=== PATIENT | female | born 1945 | race Hispanic/Latino ===

== ENCOUNTER 2017-07-10 10:30 | Outpatient (CLI) | payer MEDICARE | END 2017-07-10 10:31 | disposition home or self-care (01) | LOC: BICRAD 10:30 | PROVIDERS: ATTEND Nurse Practitioner Family | DX: R05 Cough (principal) | CPT/HCPCS: 71046 ==

== ENCOUNTER 2017-10-12 17:18 | Emergency (ER) | payer MEDICARE ==
[2017-10-12 17:49] LABS: #Eosinphils 0.2 thou/uL (0.0-0.7); #Lymphocytes 1.6 thou/uL (1.20-3.40); #Monocytes 0.7 thou/uL (0.11-0.59); #Neutrophils 6.5 thou/uL (1.40-6.50); %Basophils 0.4 % (0.0-1.0); %Lymphocytes 17.8 % (21.0-51.0); %Monocytes 8.2 % (0.0-10.0); %Neutrophils 71.7 % (42.0-75.0); Hemoglobin 12.6 g/dL (12.0-16.0); Mean Corpuscular HGB CONC 34.7 g/dL (32.0-36.0); Mean Corpuscular Hemoglobin 32.9 pg (27.0-31.0); Mean Corpuscular Volume 94.9 fl (81.0-99.0); Mean Platelet Volume 7.3 fL (7.4-10.4); Platelet Count 254 thou/uL (130-400); RBC Distribution Width 10.9 % (11.5-14.5); Red Blood Cell (RBC) Count 3.84 mill/uL (4.20-5.40); White Blood Cell (WBC) Count 9.1 thou/uL (4.8-10.8)
[2017-10-12 18:11] LABS: ALT (SGPT) 18 U/L (8-55); AST (SGOT) 17 U/L (5-34); Albumin 4.1 g/dL (3.4-4.8); Alkaline Phosphatase 108 U/L (40-150); Anion Gap 12 mmol/L (10-20); BUN (Urea Nitrogen) 22 mg/dL (9.8-20.1); Bilirubin, Total 0.5 mg/dL (0.2-1.2); Calc. Creatinine Clearance 0 mL/min (70-130); Calcium 9.1 mg/dL (7.8-10.44); Carbon Dioxide 26 mmol/L (23-31); Chloride 108 mmol/L (98-107); Estimated GFR-MDRD 62; Glucose 190 mg/dL (83-110); Magnesium 1.7 mg/dL (1.6-2.6); Protein, Total 7.1 g/dL (6.0-8.3); Sodium 142 mmol/L (136-145)
[2017-10-12 18:15] LABS: CKMB 1.1 ng/mL (0-6.6); Troponin I 0.013 ng/mL (< 0.028)
[2017-10-12] MEDS ORDERED: Ondansetron ODT 4 MG TAB ONE (18:21)
--- NOTE | 2017-10-12 18:21 | RAD ---
PORTABLE AP CHEST X-RAY 10/12/17 HISTORY: Generalized bodyaches and sore throat that began last night. Cough. COMPARISON: 09/28/15. FINDINGS: Postsurgical changes related to CABG are again noted. The cardiac silhouette is magnified by projecti on. Lungs are clear. Vascular calcifications are seen in the thoracic aorta. radiopaque densities ove rlie the upper abdomen which is felt to be artifactual. No other interval change. IMPRESSION: No acute cardiopulmonary process. POS: ALEXIA
[2017-10-12 19:03] LABS: Bilirubin Negative (Negative); Blood, Urine Negative (Negative); Clarity CLEAR (Clear); Glucose, Urine (Dipstick) Negative (Negative); Leukocyte Small (Negative); Nitrite Negative (Negative); Protein, Urine (Dipstick) Negative (Neg-Trace); Specific Gravity, Urine 1.021 (1.002-1.036); Urobilinogen 0.2 mg/dL (0.2-1.0); pH, Urine 5.5 (5.0-9.0)
[2017-10-12] MEDS ORDERED: Ibuprofen 200 MG TAB ONE (19:03)
[2017-10-12 19:09] LABS: Bacteria/HPF None Seen HPF (None Seen); Hyaline Casts/LPF 0-3 HYALINE CAST LPF (0-3 Hyaline); Pathc Cast-AUWi Flag 0.14 (0-2.49); RBC/HPF 0-3 HPF (0-3); Squamous Epithelial 0-3 HPF (0-3); WBC/HPF 0-3 HPF (0-3)
--- NOTE | 2017-11-27 14:53 | EKG ---
Test Reason : Blood Pressure : / mmHG Vent. Rate : 054 BPM Atrial Rate : 054 BPM P-R Int : 214 ms QRS Dur : 086 ms QT Int : 452 ms P-R-T Axes : 062 001 044 degrees QTc Int : 428 ms Sinus bradycardia with 1st degree A-V block Otherwise normal ECG Confirmed by ELIEZER Massey, ELIOT ([id number]), video news editor MIRTA JACKSON ([id number]) on 11/27/2017 2:52:33 PM Referred By: Confirmed By:ELIOT MARTINS M.D.
== END 2017-10-12 19:40 | disposition home or self-care (01) ==
LOC: ERS 17:18
DX: J02.9 Acute pharyngitis, unspecified; F32.9 Major depressive disorder, single episode, unspecified; I25.2 Old myocardial infarction; I10 Essential (primary) hypertension; E78.5 Hyperlipidemia, unspecified; E11.9 Type 2 diabetes mellitus without complications; Z79.82 Long term (current) use of aspirin; Z79.899 Other long term (current) drug therapy
CPT/HCPCS: 71045; 80053; 81003; 81015; 82553; 83605; 83735; 83880; 84484; 85025; 87081; 87430; 87804; 93005; 96360; Q0162

== ENCOUNTER 2018-02-28 11:09 | Emergency (ER) | payer MEDICARE ==
[2018-02-28 11:54] LABS: #Basophils 0.1 thou/uL (0.0-0.2); #Eosinphils 0.1 thou/uL (0.0-0.7); #Lymphocytes 1.6 thou/uL (1.20-3.40); #Monocytes 0.4 thou/uL (0.11-0.59); #Neutrophils 5.1 thou/uL (1.40-6.50); %Basophils 1.9 % (0.0-1.0); %Eosinophils 1.7 % (0.0-10.0); %Lymphocytes 21.1 % (21.0-51.0); %Monocytes 5.9 % (0.0-10.0); %Neutrophils 69.4 % (42.0-75.0); Hemoglobin 12.4 g/dL (12.0-16.0); Mean Corpuscular HGB CONC 35.6 g/dL (32.0-36.0); Mean Corpuscular Hemoglobin 34.1 pg (27.0-31.0); Mean Corpuscular Volume 95.6 fL (78.0-98.0); Mean Platelet Volume 7.4 fL (7.4-10.4); Platelet Count 239 thou/uL (130-400); Red Blood Cell (RBC) Count 3.63 mill/uL (4.20-5.40); White Blood Cell (WBC) Count 7.3 thou/uL (4.8-10.8)
[2018-02-28 12:13] LABS: ALT (SGPT) 21 U/L (8-55); AST (SGOT) 19 U/L (5-34); Albumin 4.3 g/dL (3.4-4.8); Alkaline Phosphatase 115 U/L (40-150); Anion Gap 16 mmol/L (10-20); BUN (Urea Nitrogen) 27 mg/dL (9.8-20.1); Bilirubin, Total 0.5 mg/dL (0.2-1.2); Calc. Creatinine Clearance 0 mL/min (70-130); Calcium 9.3 mg/dL (7.8-10.44); Carbon Dioxide 25 mmol/L (23-31); Chloride 104 mmol/L (98-107); Estimated GFR-MDRD 46; Globulin 3.3 g/dL (2.4-3.5); Glucose 271 mg/dL (83-110); Potassium 4.3 mmol/L (3.5-5.1); Protein, Total 7.6 g/dL (6.0-8.3); Sodium 141 mmol/L (136-145)
[2018-02-28 13:11] LABS: Bilirubin Negative (Negative); Blood, Urine Negative (Negative); Clarity TURBID (Clear); Glucose, Urine (Dipstick) 250 mg/dL (Negative); Leukocyte Negative (Negative); Nitrite Negative (Negative); Protein, Urine (Dipstick) Negative (Neg-Trace); Specific Gravity, Urine 1.026 (1.002-1.036); Urobilinogen 0.2 mg/dL (0.2-1.0); pH, Urine 5.5 (5.0-9.0)
== END 2018-02-28 14:23 | disposition home or self-care (01) ==
LOC: ERS 11:09
DX: E11.65 Type 2 diabetes mellitus with hyperglycemia (principal); E78.5 Hyperlipidemia, unspecified; F32.9 Major depressive disorder, single episode, unspecified; I10 Essential (primary) hypertension; I25.2 Old myocardial infarction; I25.10 Atherosclerotic heart disease of native coronary artery without angina pectoris; Z79.82 Long term (current) use of aspirin; Z79.51 Long term (current) use of inhaled steroids; Z79.899 Other long term (current) drug therapy
CPT/HCPCS: 36415; 36416; 80053; 81003; 83690; 85025; 87086; 96360; A4353

== ENCOUNTER 2018-07-18 14:40 | Outpatient (CLI) | payer MEDICARE ==
--- NOTE | 2018-07-18 16:17 | BD ---
DEXA BONE DENSITOMETRY: (Dual energy X-ray Absorptiometry) 07/18/18 HISTORY: 72-year-old white female for age-related postmenopausal, osteoporosis screening examination. Ht. 61 inches. Wt. 170 lb. Age of menopause: 43 years. COMPARISON: None available. FINDINGS: The bone mineral density (BMD) is given in grams per square centimeter (g/cm2): RIGHT HIP: BMD T-Score Z-Score Femoral neck: 0.881 0.3 2.2 Total: 1.024 0.7 2.3 LEFT HIP: BMD T-Score Z-Score Femoral neck: 0.793 -0.5 1.5 Total: 1.079 1.1 2.8 IMPRESSION: Bone mineral density of the bilateral femoral necks are both in the normal range compared to young ad ult. Fracture risk is not increased. JN Sherlyn POS: TPC
== END 2018-07-18 14:41 | disposition home or self-care (01) ==
LOC: BICMAMMO 14:40
PROVIDERS: ATTEND Specialist
DX: Z12.31 Encounter for screening mammogram for malignant neoplasm of breast (principal); M81.0 Age-related osteoporosis without current pathological fracture; R92.1 Mammographic calcification found on diagnostic imaging of breast; Z80.3 Family history of malignant neoplasm of breast
CPT/HCPCS: 77063; 77067; 77080

== ENCOUNTER 2018-12-09 10:22 | Outpatient (CLI) | payer MEDICARE ==
--- NOTE | 2018-12-09 10:38 | RAD ---
EXAM: Chest PA and lateral: HISTORY: Bronchiectasis COMPARISON: 01/24/2014 FINDINGS: Interval placement of sternotomy wires. Heart: Normal cardiac silhouette Aorta: Atherosclerosis Pulmonary vessels: Normal Costophrenic angles: Costophrenic angles are clear. Lungs: No consolidation or masses. Pneumothorax: No pneumothorax Osseous structures: No osseous abnormalities IMPRESSION: No acute cardiopulmonary process. Atherosclerosis of the aorta.
== END 2018-12-09 10:23 | disposition home or self-care (01) ==
LOC: BICRAD 10:22
PROVIDERS: ATTEND Specialist
DX: J40 Bronchitis, not specified as acute or chronic (principal); I70.0 Atherosclerosis of aorta
CPT/HCPCS: 71046

== ENCOUNTER 2019-01-22 07:19 | Outpatient (CLI) | payer MEDICARE ==
--- NOTE | 2019-01-22 08:44 | CT ---
HRCT OF THE CHEST WITHOUT IV CONTRAST: HISTORY: Pulmonary fibrosis FINDINGS: There is mild interstitial thickening in the left upper lobe. No honeycombing in the periphery is see n. No bronchiectasis or bullous changes are identified. No pleural or pericardial effusions are seen. There are vascular calcifications without evidence of a neurysmal dilatation of the thoracic aorta. There are degenerative changes in the spine. IMPRESSION: Mild chronic changes.
== END 2019-01-22 07:20 | disposition home or self-care (01) ==
LOC: CT 07:19
PROVIDERS: ATTEND Internal Medicine Critical Care Medicine
DX: J84.10 Pulmonary fibrosis, unspecified (principal)
CPT/HCPCS: 71250; 94010; 94727; 94729

== ENCOUNTER 2020-01-13 12:28 | Emergency (ER) | payer MEDICARE, OTHER ==
[2020-01-14 14:32] LABS: SARS-CoV-2 MS2 Positive; SARS-CoV-2 N Gene Negative; SARS-CoV-2 S Gene Negative; SARS-CoV-2 orf1ab Negative
== END 2020-01-13 13:22 | disposition home or self-care (01) ==
LOC: ERS 12:28
DX: R05 Cough (principal); Z20.828 Contact with and (suspected) exposure to other viral communicable diseases; E11.9 Type 2 diabetes mellitus without complications; I25.10 Atherosclerotic heart disease of native coronary artery without angina pectoris; E78.5 Hyperlipidemia, unspecified; E78.00 Pure hypercholesterolemia, unspecified; I10 Essential (primary) hypertension; I25.2 Old myocardial infarction; F32.9 Major depressive disorder, single episode, unspecified; Z79.82 Long term (current) use of aspirin; Z79.899 Other long term (current) drug therapy
CPT/HCPCS: 99283; U0003; 87635

== ENCOUNTER 2020-01-19 18:41 | Inpatient (IN) | payer MEDICARE, OTHER ==
[2020-01-19 19:36] LABS: Hemoglobin 13.3 g/dL (12.0-16.0); Mean Corpuscular HGB CONC 35.6 g/dL (32.0-36.0); Mean Corpuscular Hemoglobin 33.3 pg (27.0-31.0); Mean Corpuscular Volume 93.7 fL (78.0-98.0); Mean Platelet Volume 7.6 fL (7.4-10.4); Platelet Count 240 thou/uL (130-400); RBC Distribution Width 10.9 % (11.5-14.5); Red Blood Cell (RBC) Count 3.98 mill/uL (4.20-5.40); White Blood Cell (WBC) Count 13.9 thou/uL (4.8-10.8)
[2020-01-19] MEDS ORDERED: Acetaminophen 325 MG TAB ONE (19:47)
[2020-01-19 19:50] LABS: Band 4 % (5-11); Lymphocytes 8 % (21-51); MDiff Complete? YES; Monocytes 4 % (0-10); Neutrophil 83 % (42-75); Platelet Morphology Comment Appears Adequate; RBC Morphology Normal; Reactive Lymphocytes 1 % (0-10)
[2020-01-19 19:57] LABS: ALT (SGPT) 20 U/L (8-55); AST (SGOT) 19 U/L (5-34); Albumin 4.3 g/dL (3.4-4.8); Alkaline Phosphatase 110 U/L (40-110); Anion Gap 14 mmol/L (10-20); BUN (Urea Nitrogen) 16 mg/dL (9.8-20.1); Bilirubin, Total 0.7 mg/dL (0.2-1.2); Calc. Creatinine Clearance 0 mL/min (70-130); Calcium 8.8 mg/dL (7.8-10.44); Carbon Dioxide 25 mmol/L (23-31); Chloride 101 mmol/L (98-107); Estimated GFR-MDRD 52; Globulin 3.3 g/dL (2.4-3.5); Glucose 112 mg/dL (83-110); Potassium 3.7 mmol/L (3.5-5.1); Protein, Total 7.6 g/dL (6.0-8.3); Sodium 136 mmol/L (136-145)
[2020-01-19 20:15] LABS: Bacteria/HPF 1+ HPF (None Seen); Bilirubin Negative (Negative); Blood, Urine Negative (Negative); Clarity Clear (Clear); Glucose, Urine (Dipstick) Normal (Negative); Ketone, Urine Negative (Negative); Leukocyte 250 Leu/uL (Negative); Nitrite Negative (Negative); Protein, Urine (Dipstick) 10 mg/dL (Neg-Trace); Specific Gravity, Urine 1.021 (1.002-1.036); Squamous Epithelial 0-3 HPF (0-3); Urobilinogen Normal mg/dL (Less than 2)
[2020-01-19] MEDS ORDERED: cefTRIAXone\\ROCEPHIN 2 GM VIAL ONE (20:27)
--- NOTE | 2020-01-19 20:44 | RAD ---
PORTABLE CHEST: 01/19/20 HISTORY: Fever. Lungs are clear. No infiltrate identified. Heart and mediastinum unremarkable. Vascular markings norm al. IMPRESSION: No acute process. POS: AGW
[2020-01-19 23:20] VITALS: BMI 29.1
[2020-01-20] MEDS: Acetaminophen 325 MG TAB PO PRN ×4 (00:28→20:52)
[2020-01-20] MEDS ORDERED: Dextrose 5% in Water 1,000 ML IV PRN (08:41)
[2020-01-20] MEDS ORDERED: Insulin Regular 300 UNITS/3 ML VIAL SC PRN (08:41)
[2020-01-20] MEDS ORDERED: Dextrose 50% Abboject 50 ML SYRINGE IVP PRN (08:41)
[2020-01-20] MEDS ORDERED: Zolpidem Tartrate 5 MG TAB PO PRN (08:42)
[2020-01-20] MEDS ORDERED: Ondansetron PF 4 MG/2 ML Vial IVP PRN (08:43)
[2020-01-20] MEDS ORDERED: Sodium Chloride 0.9% 1,000 ML IV SCH (08:45)
[2020-01-20] MEDS: Gabapentin 300 MG CAP PO SCH ×3 (09:22→20:55)
[2020-01-20] MEDS: valACYclovir 500 MG TAB PO SCH (09:22)
[2020-01-20] MEDS: Aspirin 81 mg Enteric Coated Tablet PO SCH (09:23)
[2020-01-20] MEDS: ALPRAZolam 0.25 MG TAB PO SCH ×3 (09:23→20:54)
[2020-01-20] MEDS: Carvedilol 6.25 MG TAB PO SCH ×3 (09:24→20:53)
[2020-01-20] MEDS: Lisinopril 2.5 MG TAB PO SCH ×2 (09:24→09:30)
--- NOTE | 2020-01-20 09:33 | HP ---
CHIEF COMPLAINT: Urosepsis. HISTORY OF PRESENT ILLNESS: The patient is a 74-year-old female who all the day of admission began to have fever, chills, weakness, and prostration. She was brought to the emergency room by her son. He had been exposed to COVID previously in his workplace. Both of them, however, had been tested as negative on January 12. She felt nauseated, was unable to eat all day. She is a diabetic. She had general muscle aches all over, but no actual vomiting or diarrhea. In the emergency room, she was noted to have an elevated white count with left shift and her urinalysis showed overt infection and due to her fever and chills, dizziness, and generalized debility, she was felt to be septic. COVID tests were repeated on an urgent basis and this did return negative. She is being hospitalized. She is also dry. PAST MEDICAL HISTORY: Significant for insulin-dependent diabetes with good compliance to treatment and medication. She also has a history of hypertension, diverticulosis, associated occasional diverticulitis, hyperlipidemia, hypertension, has a history of [place] x2 in 2013, GERD, generalized anxiety disorder, asthma, and chronic back pain. Occasional herpetic recurrence. PAST SURGICAL HISTORY: Includes bilateral knee replacements, cataract surgery, coronary artery bypass graft x4 in 2014. PSYCHIATRIC HISTORY: Significant for the aforementioned anxiety and depression, well controlled at this time. ALLERGIES: SHE HAS NO KNOWN DRUG ALLERGIES. SOCIAL HISTORY: She is x2 years. She has never smoked or drank. She has been a homemaker. MEDICATIONS ON ADMISSION: Include: 1. Valacyclovir for recurrent herpes. 2. Aspirin 81 mg daily. 3. Gabapentin 600 mg t.i.d. 4. Atorvastatin 40 mg at bedtime. 5. Carvedilol 6.25 mg b.i.d. 6. Singulair 10 mg daily. 7. Tramadol 50 mg q.6 p.r.n. pain. 8. Metformin 1000 mg daily. 9. Imdur 30 mg daily. 10. Ranitidine 150 mg b.i.d. 11. Terazosin 5 mg at bedtime. 12. Nitroglycerin sublingual tabs p.r.n. chest pain. 13. Alprazolam 1 mg t.i.d. 14. Symbicort 2 puffs b.i.d. REVIEW OF SYSTEMS: CONSTITUTIONAL: The patient is positive for fever, chills, dizziness, debility, general aches and pains and weakness. HEENT: Denies drainage or congestion in upper airways, the eyes, ears, nose, or throat. CHEST: Denies cough or shortness of breath. CARDIOVASCULAR: Denies palpitation or chest pain. GI: Admits to nausea, but no vomiting or diarrhea. : No blood in urine or stool. She has recently had urinary frequency and admits to not drinking enough fluid. MUSCULOSKELETAL: Chronic back pain. No new pains in the major muscle joints. LYMPHATICS: No new areas of edema or abnormal bruising or bleeding. NEUROLOGIC: She has had some dizziness, but denies headache or trouble with mentation. PSYCHIATRIC: Currently, her anxiety and depression are well controlled. No new symptoms. SKIN: No new areas of bruising or rashes. PHYSICAL EXAMINATION: VITAL SIGNS: At the time of admission, blood pressure 127/58, pulse 103, respirations 20, temperature 100.4 orally, O2 saturation 100% on room air. GENERAL: This is a well-developed, well-nourished, female, elderly, alert, oriented, cooperative. HEENT: Normocephalic, atraumatic. Pupils 2 to 3 mm, reactive equally, reactive to light. Extraocular muscles intact. TMs, nares are clear. Pharynx is somewhat dry. NECK: Supple. No adenopathy. CHEST: Good breath sounds bilaterally. HEART: Regular rate and rhythm without murmur. BREASTS: Deferred. ABDOMEN: Soft without hepatosplenomegaly. Somewhat tender suprapubically. No guarding or rebound. EXTREMITIES: Without clubbing, cyanosis, or edema. Normal range of motion present. SKIN: Without acute rashes or lesions with poor turgor. NEUROLOGIC: Cranial nerves are intact. Gait and cerebral function are untested at this time. Sensory exam is grossly intact. Mental status is at baseline. LABORATORY DATA: On admission EKG showed heart rate of 82, normal sinus rhythm, no acute changes noted. Nonspecific T-waves (old). Chest x-ray shows no acute findings. The lab on admission showed WBCs at 13.9, hemoglobin 13.3, hematocrit 37.3 with platelets of 240. The neutrophils 83, bands 4, lymphocytes 8. COVID status is nonreactive. Urine shows 10 to 20 wbc's with 250 of leukocyte esterase. Sodium 136, potassium 3.7, chloride 101, CO2 of 25, BUN 16, creatinine 0.1 with GFR 52, glucose 112 (the patient does not eat all day), lactic acid 1.5, calcium 8.8. Liver functions unremarkable. ASSESSMENT: 1. Urosepsis. 2. Dehydration. 3. Insulin-dependent diabetes. PLAN: Plan will be fluid replacement. Sliding scale insulin. Continue IV Rocephin until cultures return. More specific treatment that may put her in a category for oral medication and discharge. We will serially re-evaluate her and provide antipyretics and antiemetics as needed. Job ID: [id number]
--- NOTE | 2020-01-20 15:51 | PQF ---
CLINICAL DOCUMENTATION CLARIFICATION FORM: Patient Name: CARINA SMART Date of : 1945 Account: [id number] Admit Date: 01/19/2020 Facility: [facility] [place] Dear Dr. Jose Eduardo SANTIAGO Date / Time: 01/20/2020 [id number] Please exercise your independent, professional judgment in responding to the clarification form. Clinical indicators are provided on the bottom of this form for your review. Please check appropriate box(es): [ X ] Sepsis due to: UTI [ ] Sepsis not due to : UTI [ ] Localized infection without sepsis [ ] Other diagnosis [ ] Unable to determine In addition, please specify: Present on Admission (POA): [ X ] Yes [ ] No [ ] Unable to determine For continuity of documentation, please document condition throughout progress notes and discharge summary. Thank You. To be completed by CDI/Coding staff for physician review: CLINICAL INDICATORS - SIGNS / SYMPTOMS / LABS / RESULTS AND LOCATION IN MR 01/18 PULSE 103, TEMP 102.5 01/18 WBC 13.9, BANDS 4 01/18 ED REPORT: ED PHYSICIAN FINAL DX: SEPSIS, UTI, COVID R/O 01/19 H&P (PAMELA) THE PATIENT IS 74 FEMALE WHO ALL DAY OF ADMISSION BEGAN TO HAVE FEVER, CHILLS, WEAKNESS. ASSESSMENT: UROSEPSIS, DEHYDRATION RISK FACTORS / RESULTS AND LOCATION IN MR DX UROSEPSIS, UTI (SANTIAGO/H&P) 01/18 TREATMENTS / RESULTS AND LOCATION IN MR ROCEPHIN IV ( ED/ 01/18) IV FLUIDS ( 01/19) THANK YOU! [facility]ING [facility] Signature: BING MEZA RN Phone #: [phone] Date: 01/20/2020 2759 This is a permanent part of the Medical Record [facility]
[2020-01-20] MEDS: metFORMIN 500 MG TAB PO SCH (17:03)
[2020-01-20] MEDS: Mometasone 200 MCG/Formoterol 5 MCG 120 PUFF INHALER INH SCH (18:43)
[2020-01-20] MEDS: Atorvastatin Calcium 40 MG TAB PO SCH (20:54)
[2020-01-20] MEDS: cefTRIAXone\\ROCEPHIN 2 GM in Sodium Chloride 0.9% 100 ML IVPB SCH (20:54)
[2020-01-20] MEDS: Insulin Glargine 5 UNITS in Pre-Filled Syringe 1 EACH SC SCH (20:55)
[2020-01-20] MEDS ORDERED: Montelukast Sodium 10 mg Tablet PO SCH (21:00)
[2020-01-21 06:42] LABS: #Lymphocytes 1.5 thou/uL (1.20-3.40); #Monocytes 0.5 thou/uL (0.11-0.59); #Neutrophils 5.5 thou/uL (1.40-6.50); %Basophils 0.4 % (0.0-1.0); %Eosinophils 0.1 % (0.0-10.0); %Monocytes 6.4 % (0.0-10.0); %Neutrophils 73.1 % (42.0-75.0); Hemoglobin 11.7 g/dL (12.0-16.0); Mean Corpuscular HGB CONC 34.5 g/dL (32.0-36.0); Mean Corpuscular Hemoglobin 33.2 pg (27.0-31.0); Mean Platelet Volume 8.3 fL (7.4-10.4); Platelet Count 175 thou/uL (130-400); Red Blood Cell (RBC) Count 3.52 mill/uL (4.20-5.40); White Blood Cell (WBC) Count 7.5 thou/uL (4.8-10.8)
[2020-01-21] MEDS: Mometasone 200 MCG/Formoterol 5 MCG 120 PUFF INHALER INH SCH (07:04)
[2020-01-21 07:05] LABS: Anion Gap 11 mmol/L (10-20); BUN (Urea Nitrogen) 12 mg/dL (9.8-20.1); Calc. Creatinine Clearance 67 mL/min (70-130); Calcium 7.7 mg/dL (7.8-10.44); Carbon Dioxide 23 mmol/L (23-31); Chloride 106 mmol/L (98-107); Cholesterol 128 mg/dl (< 200 Desired); Estimated GFR-MDRD 68; Glucose 89 mg/dL (83-110); HDL Cholesterol 42 mg/dL (>60 Neg Risk); LDL Cholesterol, Calculated 62 mg/dL; Potassium 3.5 mmol/L (3.5-5.1); Sodium 136 mmol/L (136-145); Triglycerides 121 mg/dL (Less than 150)
[2020-01-21] MEDS: Calcium Carbonate 500 MG ChewTAB PO SCH ×2 (08:33→23:00)
[2020-01-21] MEDS: valACYclovir 500 MG TAB PO SCH (08:34)
[2020-01-21] MEDS: Aspirin 81 mg Enteric Coated Tablet PO SCH (08:34)
[2020-01-21] MEDS: Lisinopril 2.5 MG TAB PO SCH (08:34)
[2020-01-21] MEDS: Carvedilol 6.25 MG TAB PO SCH ×2 (08:34→22:59)
[2020-01-21] MEDS: ALPRAZolam 0.25 MG TAB PO SCH ×3 (08:53→22:59)
[2020-01-21] MEDS: metFORMIN 500 MG TAB PO SCH (08:54)
[2020-01-21] MEDS: Atorvastatin Calcium 40 MG TAB PO SCH (22:59)
[2020-01-21] MEDS: cefTRIAXone\\ROCEPHIN 2 GM in Sodium Chloride 0.9% 100 ML IVPB SCH (23:00)
[2020-01-21] MEDS: Insulin Glargine 5 UNITS in Pre-Filled Syringe 1 EACH SC SCH (23:01)
[2020-01-22 06:58] LABS: #Eosinphils 0.2 thou/uL (0.0-0.7); #Monocytes 0.6 thou/uL (0.11-0.59); #Neutrophils 3.2 thou/uL (1.40-6.50); %Basophils 0.1 % (0.0-1.0); %Eosinophils 2.7 % (0.0-10.0); %Lymphocytes 33.7 % (21.0-51.0); %Monocytes 10.5 % (0.0-10.0); Hemoglobin 10.9 g/dL (12.0-16.0); Mean Corpuscular HGB CONC 34.4 g/dL (32.0-36.0); Mean Corpuscular Hemoglobin 32.2 pg (27.0-31.0); Mean Corpuscular Volume 93.5 fL (78.0-98.0); Mean Platelet Volume 8.3 fL (7.4-10.4); Platelet Count 191 thou/uL (130-400); RBC Distribution Width 10.9 % (11.5-14.5)
[2020-01-22 07:20] LABS: Anion Gap 13 mmol/L (10-20); BUN (Urea Nitrogen) 9 mg/dL (9.8-20.1); Calc. Creatinine Clearance 72 mL/min (70-130); Calcium 8.1 mg/dL (7.8-10.44); Carbon Dioxide 22 mmol/L (23-31); Chloride 108 mmol/L (98-107); Estimated GFR-MDRD 74; Glucose 94 mg/dL (83-110); Potassium 3.4 mmol/L (3.5-5.1); Sodium 140 mmol/L (136-145)
[2020-01-22 07:35] VITALS: TEMP 98.8
[2020-01-22] MEDS: Carvedilol 6.25 MG TAB PO SCH (09:54)
[2020-01-22] MEDS: Aspirin 81 mg Enteric Coated Tablet PO SCH (09:54)
[2020-01-22] MEDS: Calcium Carbonate 500 MG ChewTAB PO SCH (09:55)
[2020-01-22] MEDS: Lisinopril 2.5 MG TAB PO SCH (09:55)
[2020-01-22] MEDS: valACYclovir 500 MG TAB PO SCH (09:55)
[2020-01-22] MEDS: ALPRAZolam 0.25 MG TAB PO SCH (10:16)
[2020-01-22 13:57] VITALS: BP 125/82
--- NOTE | 2020-01-25 05:35 | PQF ---
CLINICAL DOCUMENTATION CLARIFICATION FORM: Dear : Wilson Rashid Date / Time: 01/25/2020 05:34 Please exercise your independent, professional judgment in responding to the clarification form. Clinical indicators are provided on the bottom of this form for your review Please check appropriate box(s): [ x ] Septic Shock [ ] Shock Unspecified [ ] Other diagnosis [ ] Unable to determine In addition, please specify: Present on Admission (POA): [ x ] Yes [ ] No [ ] Unable to determine Physician Signature: Date/Time: For continuity of documentation, please document condition throughout progress notes and discharge summary. Thank You. To be completed by CDI/Coding staff for physician review: Present Clinical Indicators - Signs / Symptoms / Labs Results and Location in Medical Record [x] BP: 01/1860=938/58 01/19=96/53 01/20=92/56 Vital Signs 01/18 [x] complains of fever,chills and feeling unwell ED Notes 01/18 [x] dizziness HP 01/18 Present Risk Factors Results and Location in Medical Record [x] Sepsis CDI Query [x] 74 years old female ED Notes 01/18 [x] DM ED Notes 01/18 [x] UTI CDI Query Present Treatments Results and Location in Medical Record [x] Rocephin 2gm IV SEP 11 [x] IVF SEP 11 [x] Vital Signs monitoring Collected 01/18 CDS/Product Technician Signature:Jose Hernandez Phone #: [phone] Date/Time: 01/25/2020 05:34 This is a permanent part of the Medical Record [facility]
== END 2020-01-22 11:47 | disposition home or self-care (01) | DRG 871 ==
LOC: ERS 18:41 → T4-A 21:20
PROVIDERS: ADMIT Specialist; ATTEND Specialist
DX: A41.9 Sepsis, unspecified organism (principal); R65.21 Severe sepsis with septic shock; N39.0 Urinary tract infection, site not specified; I25.10 Atherosclerotic heart disease of native coronary artery without angina pectoris; E11.9 Type 2 diabetes mellitus without complications; E78.5 Hyperlipidemia, unspecified; E78.00 Pure hypercholesterolemia, unspecified; I10 Essential (primary) hypertension; Z96.653 Presence of artificial knee joint, bilateral; F32.9 Major depressive disorder, single episode, unspecified; Z20.828 Contact with and (suspected) exposure to other viral communicable diseases; K21.9 Gastro-esophageal reflux disease without esophagitis; F41.1 Generalized anxiety disorder; J45.909 Unspecified asthma, uncomplicated; G89.29 Other chronic pain; E86.0 Dehydration; Z79.84 Long term (current) use of oral hypoglycemic drugs; Z79.82 Long term (current) use of aspirin; Z79.51 Long term (current) use of inhaled steroids; Z79.899 Other long term (current) drug therapy; I25.2 Old myocardial infarction; Z98.42 Cataract extraction status, left eye; Z98.41 Cataract extraction status, right eye; Z95.1 Presence of aortocoronary bypass graft; Z95.5 Presence of coronary angioplasty implant and graft; Z90.49 Acquired absence of other specified parts of digestive tract
CPT/HCPCS: 36415; 36416; 71045; 80048; 80053; 80061; 81003; 81015; 83605; 84443; 85025; 87040; 87086; 93005; 96361; 96365; J0696; J1815; J3490; U0002

== ENCOUNTER 2020-06-08 10:20 | Outpatient (CLI) | payer MEDICARE ==
--- NOTE | 2020-06-08 11:04 | RAD ---
2 VIEW CHEST: Date: 06/08/2020 INDICATION: Pneumonia. COMPARISON: 02/26/2020. FINDINGS: Lungs appear clear. No infiltrate identified. Heart and mediastinum unremarkable. Vascular markings a re normal. Postop sternotomy changes are again noted. Osseous structures unremarkable. IMPRESSION: No acute process. POS: AGW
== END 2020-06-08 10:21 | disposition home or self-care (01) ==
LOC: BICRAD 10:20
PROVIDERS: ATTEND Specialist
DX: J18.9 Pneumonia, unspecified organism (principal)
CPT/HCPCS: 71046

== ENCOUNTER 2020-10-21 08:14 | Emergency (ER) | payer OTHER, MEDICARE | END 2020-10-21 10:38 | disposition home or self-care (01) | LOC: ERS 08:14 | DX: M25.551 Pain in right hip (principal); M79.651 Pain in right thigh; E11.9 Type 2 diabetes mellitus without complications; E78.5 Hyperlipidemia, unspecified; I10 Essential (primary) hypertension; Z79.899 Other long term (current) drug therapy; W01.0XXA Fall on same level from slipping, tripping and stumbling without subsequent striking against object, initial encounter ==

== ENCOUNTER 2022-01-29 21:03 | Inpatient (IN) | payer MEDICARE ==
[2022-01-29 22:53] LABS: #Eosinphils 0.1 thou/uL (0.0-0.7); #Lymphocytes 3.1 thou/uL (1.20-3.40); #Monocytes 0.8 thou/uL (0.11-0.59); #Neutrophils 6.2 thou/uL (1.40-6.50); %Basophils 0.4 % (0.0-1.0); %Eosinophils 0.7 % (0.0-10.0); %Lymphocytes 30.4 % (21.0-51.0); %Monocytes 7.8 % (0.0-10.0); %Neutrophils 60.7 % (42.0-75.0); Hemoglobin 12.8 g/dL (12.0-16.0); Mean Corpuscular HGB CONC 33.6 g/dL (32.0-36.0); Mean Corpuscular Hemoglobin 33.3 pg (27.0-31.0); Mean Corpuscular Volume 99.2 fL (78.0-98.0); Mean Platelet Volume 7.5 fL (7.4-10.4); Platelet Count 276 thou/uL (130-400); RBC Distribution Width 11.2 % (11.5-14.5); Red Blood Cell (RBC) Count 3.85 mill/uL (4.20-5.40); White Blood Cell (WBC) Count 10.2 thou/uL (4.8-10.8)
[2022-01-29 23:15] LABS: ALT (SGPT) 20 U/L (8-55); AST (SGOT) 20 U/L (5-34); Albumin 4.6 g/dL (3.4-4.8); Alkaline Phosphatase 96 U/L (40-110); Anion Gap 15 mmol/L (10-20); BUN (Urea Nitrogen) 25 mg/dL (9.8-20.1); Bilirubin, Total 0.8 mg/dL (0.2-1.2); Calc. Creatinine Clearance 0 mL/min (70-130); Calcium 9.6 mg/dL (7.8-10.44); Carbon Dioxide 28 mmol/L (23-31); Chloride 103 mmol/L (98-107); Estimated GFR 61; Globulin 3.1 g/dL (2.4-3.5); Glucose 109 mg/dL (83-110); Potassium 4.5 mmol/L (3.5-5.1); Protein, Total 7.7 g/dL (5.8-8.1); Sodium 141 mmol/L (136-145)
[2022-01-30] MEDS ORDERED: Aspirin Chewable 81 MG TAB ONE (01:07)
[2022-01-30 02:00] LABS: Troponin I 0.017 ng/mL (< 0.028)
[2022-01-30 05:43] VITALS: BMI 30.7
[2022-01-30 06:01] LABS: Troponin I 0.016 ng/mL (< 0.028)
[2022-01-30 07:15] LABS: #Eosinphils 0.1 thou/uL (0.0-0.7); #Lymphocytes 2.6 thou/uL (1.20-3.40); #Monocytes 0.7 thou/uL (0.11-0.59); #Neutrophils 3.9 thou/uL (1.40-6.50); %Basophils 0.1 % (0.0-1.0); %Eosinophils 1.4 % (0.0-10.0); %Monocytes 9.1 % (0.0-10.0); %Neutrophils 53.5 % (42.0-75.0); Hemoglobin 12.4 g/dL (12.0-16.0); Mean Corpuscular HGB CONC 34.1 g/dL (32.0-36.0); Mean Corpuscular Hemoglobin 33.4 pg (27.0-31.0); Mean Corpuscular Volume 97.9 fL (78.0-98.0); Mean Platelet Volume 7.7 fL (7.4-10.4); Platelet Count 258 thou/uL (130-400); RBC Distribution Width 11.2 % (11.5-14.5); Red Blood Cell (RBC) Count 3.71 mill/uL (4.20-5.40); White Blood Cell (WBC) Count 7.2 thou/uL (4.8-10.8)
[2022-01-30 07:23] LABS: Hemoglobin A1c 5.9 % (4.0-6.0)
[2022-01-30 07:34] LABS: Anion Gap 13 mmol/L (10-20); BUN (Urea Nitrogen) 22 mg/dL (9.8-20.1); Calc. Creatinine Clearance 67 mL/min (70-130); Calcium 9.2 mg/dL (7.8-10.44); Carbon Dioxide 27 mmol/L (23-31); Chloride 106 mmol/L (98-107); Estimated GFR 73; Glucose 94 mg/dL (83-110); Potassium 4.4 mmol/L (3.5-5.1); Sodium 142 mmol/L (136-145)
[2022-01-30] MEDS ORDERED: Nitroglycerin 0.4 MG TAB (25 Tab Bottle) SL PRN ×2 (08:23→14:31)
[2022-01-30] MEDS ORDERED: Insulin Regular 300 UNITS/3 ML VIAL SC PRN (08:30)
[2022-01-30] MEDS ORDERED: Sodium Chloride 0.45% 1,000 ML IV SCH (08:30)
[2022-01-30] MEDS ORDERED: Dextrose 50% Abboject 50 ML SYRINGE IVP PRN (08:30)
[2022-01-30] MEDS ORDERED: Dextrose 5% in Water 1,000 ML IV PRN (08:30)
[2022-01-30 08:53] LABS: Bacteria/HPF None Seen HPF (None Seen); Bilirubin Negative (Negative); Blood, Urine Negative (Negative); Clarity Clear (Clear); Glucose, Urine (Dipstick) Normal (Negative); Ketone, Urine Negative (Negative); Leukocyte 250 Leu/uL (Negative); Nitrite Negative (Negative); Protein, Urine (Dipstick) Negative (Neg-Trace); RBC/HPF 0-3 HPF (0-3); Specific Gravity, Urine 1.013 (1.002-1.036); Squamous Epithelial 0-3 HPF (0-3); Urobilinogen Normal mg/dL (Less than 2); WBC/HPF 0-3 HPF (0-3)
[2022-01-30] MEDS ORDERED: Communication Order-Pharmacy FS SCH (09:45)
[2022-01-30] MEDS: Carvedilol 6.25 MG TAB PO SCH ×2 (10:07→20:52)
[2022-01-30] MEDS: Aspirin Chewable 81 MG TAB PO SCH (10:08)
[2022-01-30] MEDS: Lisinopril 10 MG TAB PO SCH (10:08)
[2022-01-30] MEDS ORDERED: Verapamil 5 MG/2 ML VIAL ONE (10:58)
[2022-01-30] MEDS ORDERED: Nitroglycerin 100MG/250ML BOT 0 ML ONE (10:58)
[2022-01-30] MEDS ORDERED: Adenosine 6 MG/2 ML VIAL ONE (10:58)
[2022-01-30] MEDS ORDERED: Lidocaine 1% (PF) 30 ML VIAL ONE (10:58)
[2022-01-30] MEDS ORDERED: Fentanyl 100 MCG/2 ML VIAL ONE (12:17)
[2022-01-30] MEDS ORDERED: Midazolam HCl 2 mg/2 ml Vial ONE (12:17)
[2022-01-30] MEDS ORDERED: Iopamidol 370 76% 100 ML VIAL ONE (14:16)
[2022-01-30] MEDS ORDERED: Acetaminophen/Codeine 30-300mg Tablet PO PRN ×2 (14:31)
[2022-01-30] MEDS ORDERED: Sodium Chloride 0.9% 200 ML IV PRN (14:31)
[2022-01-30] MEDS ORDERED: Sodium Chloride 0.9% 1,000 ML IV SCH (14:45)
[2022-01-30] MEDS ORDERED: valACYclovir 500 MG TAB PO SCH (21:00)
[2022-01-31] MEDS: Carvedilol 6.25 MG TAB PO SCH (08:41)
[2022-01-31] MEDS: Aspirin Chewable 81 MG TAB PO SCH (08:41)
[2022-01-31] MEDS: Lisinopril 10 MG TAB PO SCH (08:41)
[2022-01-31 12:17] VITALS: BP 115/55; TEMP 97.5
== END 2022-01-31 13:40 | disposition home or self-care (01) | DRG 287 ==
LOC: ERS 21:03 → ERHOLD 01-30 00:55 → 2NO 01-30 05:06 → OBSVTOIN 01-30 06:21
PROVIDERS: ADMIT Specialist; ATTEND Specialist
PROC: 4A023N7 Measurement of Cardiac Sampling and Pressure, Left Heart, Percutaneous Approach (ICD-10-PCS; principal; 2022-01-30)
PROC: B2111ZZ Fluoroscopy of Multiple Coronary Arteries using Low Osmolar Contrast (ICD-10-PCS; 2022-01-30)
DX: I25.118 Atherosclerotic heart disease of native coronary artery with other forms of angina pectoris (principal); E11.9 Type 2 diabetes mellitus without complications; E78.5 Hyperlipidemia, unspecified; E78.00 Pure hypercholesterolemia, unspecified; I10 Essential (primary) hypertension; Z96.653 Presence of artificial knee joint, bilateral; F32.A Depression, unspecified; K21.9 Gastro-esophageal reflux disease without esophagitis; J45.909 Unspecified asthma, uncomplicated; Z20.822 Contact with and (suspected) exposure to COVID-19; I25.2 Old myocardial infarction; Z98.42 Cataract extraction status, left eye; Z98.41 Cataract extraction status, right eye; Z95.1 Presence of aortocoronary bypass graft; Z95.5 Presence of coronary angioplasty implant and graft; Z98.890 Other specified postprocedural states
CPT/HCPCS: 36415; 36416; 71045; 80048; 80053; 81003; 81015; 83036; 83880; 84484; 85025; 87086; 93005; 93455; 97139; 99152; C1769; C1894; G0378; J0153; J2001; J2250; J3010; J7050; Q9967; U0003; U0005

== ENCOUNTER 2022-02-02 14:46 | Inpatient (IN) | payer MEDICARE ==
[2022-02-02 15:27] LABS: #Eosinphils 0.1 thou/uL (0.0-0.7); #Lymphocytes 1.9 thou/uL (1.20-3.40); #Monocytes 0.7 thou/uL (0.11-0.59); #Neutrophils 6.2 thou/uL (1.40-6.50); %Eosinophils 1.4 % (0.0-10.0); %Monocytes 7.8 % (0.0-10.0); %Neutrophils 69.8 % (42.0-75.0); Hemoglobin 11.7 g/dL (12.0-16.0); Mean Corpuscular HGB CONC 34.7 g/dL (32.0-36.0); Mean Corpuscular Hemoglobin 33.9 pg (27.0-31.0); Mean Corpuscular Volume 97.6 fL (78.0-98.0); Mean Platelet Volume 7.7 fL (7.4-10.4); Platelet Count 219 thou/uL (130-400); Red Blood Cell (RBC) Count 3.44 mill/uL (4.20-5.40); White Blood Cell (WBC) Count 8.9 thou/uL (4.8-10.8)
[2022-02-02 15:47] LABS: ALT (SGPT) 21 U/L (8-55); AST (SGOT) 20 U/L (5-34); Albumin 3.7 g/dL (3.4-4.8); Alkaline Phosphatase 96 U/L (40-110); Anion Gap 15 mmol/L (10-20); BUN (Urea Nitrogen) 26 mg/dL (9.8-20.1); Bilirubin, Total 0.6 mg/dL (0.2-1.2); Calc. Creatinine Clearance 0 mL/min (70-130); Calcium 8.5 mg/dL (7.8-10.44); Carbon Dioxide 24 mmol/L (23-31); Chloride 105 mmol/L (98-107); Estimated GFR 53; Glucose 74 mg/dL (83-110); Magnesium 1.8 mg/dL (1.6-2.6); Potassium 4.5 mmol/L (3.5-5.1); Protein, Total 6.7 g/dL (5.8-8.1); Sodium 139 mmol/L (136-145)
[2022-02-02] MEDS ORDERED: Aspirin Chewable 81 MG TAB ONE (15:59)
[2022-02-02 16:11] LABS: CKMB 3.7 ng/mL (0-6.6)
[2022-02-02 16:17] LABS: Bacteria/HPF None Seen HPF (None Seen); Bilirubin Negative (Negative); Blood, Urine Negative (Negative); Clarity Clear (Clear); Glucose, Urine (Dipstick) Normal (Negative); Ketone, Urine Negative (Negative); Leukocyte 25 Leu/uL (Negative); Nitrite Negative (Negative); Protein, Urine (Dipstick) Negative (Neg-Trace); RBC/HPF 0-3 HPF (0-3); Specific Gravity, Urine 1.008 (1.002-1.036); Squamous Epithelial 0-3 HPF (0-3); Urobilinogen Normal mg/dL (Less than 2); WBC/HPF 0-3 HPF (0-3); pH, Urine 6.5 (5.0-9.0)
[2022-02-02] MEDS ORDERED: Heparin 25,000 units/D5W 500 ML ONE (16:55)
[2022-02-02 19:29] LABS: CKMB 11.6 ng/mL (0-6.6)
[2022-02-02] MEDS ORDERED: Cyclobenzaprine 10 MG TAB PO PRN (21:10)
[2022-02-02 21:14] VITALS: BMI 31.2
[2022-02-02] MEDS ORDERED: Heparin 10,000 UNITS/ 10 ML VIAL SLOW IVP SCH (21:15)
[2022-02-02] MEDS ORDERED: Heparin 25,000 units/D5W 500 ML IV SCH (21:15)
[2022-02-02 23:44] LABS: Troponin I 1.971 ng/mL (< 0.028)
[2022-02-03 03:48] LABS: #Eosinphils 0.2 thou/uL (0.0-0.7); #Lymphocytes 2.8 thou/uL (1.20-3.40); #Monocytes 0.7 thou/uL (0.11-0.59); #Neutrophils 7.4 thou/uL (1.40-6.50); %Basophils 0.4 % (0.0-1.0); %Eosinophils 1.9 % (0.0-10.0); %Lymphocytes 25.1 % (21.0-51.0); %Monocytes 6.6 % (0.0-10.0); Hemoglobin 12.8 g/dL (12.0-16.0); Mean Corpuscular HGB CONC 34.1 g/dL (32.0-36.0); Mean Corpuscular Hemoglobin 33.4 pg (27.0-31.0); Mean Corpuscular Volume 98.1 fL (78.0-98.0); Mean Platelet Volume 7.9 fL (7.4-10.4); Platelet Count 219 thou/uL (130-400); RBC Distribution Width 11.2 % (11.5-14.5); Red Blood Cell (RBC) Count 3.82 mill/uL (4.20-5.40); White Blood Cell (WBC) Count 11.2 thou/uL (4.8-10.8)
[2022-02-03 04:15] LABS: Anion Gap 14 mmol/L (10-20); BUN (Urea Nitrogen) 23 mg/dL (9.8-20.1); Calc. Creatinine Clearance 53 mL/min (70-130); Calcium 9.1 mg/dL (7.8-10.44); Carbon Dioxide 24 mmol/L (23-31); Chloride 105 mmol/L (98-107); Estimated GFR 54; Glucose 102 mg/dL (83-110); Potassium 4.2 mmol/L (3.5-5.1); Sodium 139 mmol/L (136-145)
[2022-02-03 04:47] LABS: Troponin I 3.018 ng/mL (< 0.028)
[2022-02-03] MEDS ORDERED: Aspirin 325 MG TAB PO SCH (09:00)
[2022-02-03] MEDS: Carvedilol 6.25 MG TAB PO SCH ×2 (10:10→22:36)
[2022-02-03] MEDS: Lisinopril 10 MG TAB PO SCH (10:11)
[2022-02-03] MEDS: Famciclovir 500 MG TAB PO SCH (10:12)
[2022-02-03] MEDS: Nitroglycerin 0.4 MG TAB (25 Tab Bottle) SL PRN ×2 (11:11→12:13)
[2022-02-03] MEDS ORDERED: Sodium Chloride 0.9% 1,000 ML IV PRN (13:08)
[2022-02-03] MEDS ORDERED: Nitroglycerin 50 MG/250 ML BOT 250 ML IVPB SCH (13:15)
[2022-02-03] MEDS ORDERED: Sodium Chloride 0.9% 500 ML IV SCH (13:15)
[2022-02-03 14:26] LABS: CKMB 77.9 ng/mL (0-6.6)
[2022-02-03] MEDS ORDERED: Acetaminophen 325 MG TAB PO PRN (14:28)
[2022-02-03 14:53] LABS: Prothrombin Time 13.5 sec (12.0-14.7)
[2022-02-03 15:07] LABS: PTT 49.2 sec (22.9-36.1)
[2022-02-03 17:56] LABS: CKMB 83.1 ng/mL (0-6.6)
[2022-02-03] MEDS ORDERED: Aggrastat 12.5 MG/250 ML 250 ML IVPB SCH (18:15)
[2022-02-03] MEDS ORDERED: TICAGRELOR 90 MG TABLET PO SCH (18:30)
[2022-02-03] MEDS ORDERED: Rosuvastatin 20 MG TAB PO SCH (21:00)
[2022-02-03 21:55] LABS: Prothrombin Time 13.6 sec (12.0-14.7)
[2022-02-03 21:56] LABS: PTT 84.3 sec (22.9-36.1)
[2022-02-03 22:00] LABS: Critical Call Chem Troponin I RESULT DECREASING
[2022-02-03 22:28] LABS: CKMB 60.2 ng/mL (0-6.6)
[2022-02-03] MEDS ORDERED: Carvedilol 3.125 MG TAB PO SCH (22:30)
[2022-02-03] MEDS: Carvedilol 3.125 MG TAB PO SCH (22:31)
[2022-02-04 04:23] LABS: #Eosinphils 0.4 thou/uL (0.0-0.7); #Lymphocytes 2.6 thou/uL (1.20-3.40); #Monocytes 0.9 thou/uL (0.11-0.59); #Neutrophils 8.3 thou/uL (1.40-6.50); %Basophils 0.3 % (0.0-1.0); %Lymphocytes 20.9 % (21.0-51.0); %Monocytes 7.5 % (0.0-10.0); %Neutrophils 68.3 % (42.0-75.0); Hemoglobin 12.3 g/dL (12.0-16.0); Mean Corpuscular HGB CONC 34.3 g/dL (32.0-36.0); Mean Corpuscular Hemoglobin 33.8 pg (27.0-31.0); Mean Corpuscular Volume 98.4 fL (78.0-98.0); Platelet Count 233 thou/uL (130-400); RBC Distribution Width 11.3 % (11.5-14.5); Red Blood Cell (RBC) Count 3.66 mill/uL (4.20-5.40); White Blood Cell (WBC) Count 12.2 thou/uL (4.8-10.8)
[2022-02-04 04:31] VITALS: TEMP 97.7
[2022-02-04 04:34] LABS: Prothrombin Time 13.5 sec (12.0-14.7)
[2022-02-04 04:35] LABS: PTT 80.7 sec (22.9-36.1)
[2022-02-04 04:36] LABS: Anion Gap 14 mmol/L (10-20); BUN (Urea Nitrogen) 22 mg/dL (9.8-20.1); Calc. Creatinine Clearance 53 mL/min (70-130); Calcium 8.8 mg/dL (7.8-10.44); Carbon Dioxide 26 mmol/L (23-31); Chloride 104 mmol/L (98-107); Estimated GFR 54; Glucose 110 mg/dL (83-110); Potassium 4.3 mmol/L (3.5-5.1); Sodium 140 mmol/L (136-145)
[2022-02-04] MEDS: Famciclovir 500 MG TAB PO SCH (08:23)
[2022-02-04] MEDS: Lisinopril 10 MG TAB PO SCH (08:24)
[2022-02-04 08:25] VITALS: BP 96/54
[2022-02-04] MEDS: Carvedilol 3.125 MG TAB PO SCH (08:25)
[2022-02-04] MEDS ORDERED: Aspirin Chewable 81 MG TAB PO SCH (09:00)
[2022-02-04] MEDS ORDERED: Benzonatate 100 MG CAP PO PRN (10:32)
== END 2022-02-04 15:05 | disposition short-term general hospital (02) | DRG 282 ==
LOC: ERS 14:46 → ERHOLD 17:01 → IMCU/EMU 20:37 → CCU 02-03 13:35
PROVIDERS: ADMIT Specialist; ATTEND Surgery
DX: I21.4 Non-ST elevation (NSTEMI) myocardial infarction (principal); I25.10 Atherosclerotic heart disease of native coronary artery without angina pectoris; E11.9 Type 2 diabetes mellitus without complications; I10 Essential (primary) hypertension; E78.5 Hyperlipidemia, unspecified; B00.9 Herpesviral infection, unspecified; K21.9 Gastro-esophageal reflux disease without esophagitis; F32.A Depression, unspecified; F41.9 Anxiety disorder, unspecified; Z96.653 Presence of artificial knee joint, bilateral; J44.9 Chronic obstructive pulmonary disease, unspecified; R00.1 Bradycardia, unspecified; Z95.1 Presence of aortocoronary bypass graft; I25.2 Old myocardial infarction; Z98.49 Cataract extraction status, unspecified eye; Z98.890 Other specified postprocedural states; Z79.899 Other long term (current) drug therapy; Z79.82 Long term (current) use of aspirin; Z79.84 Long term (current) use of oral hypoglycemic drugs
CPT/HCPCS: 36415; 71045; 80048; 80053; 81003; 81015; 82553; 83735; 84484; 85025; 85610; 85730; 93005; 96365; 96366; J1644

== ENCOUNTER 2024-06-08 08:29 | Day surgery (SDC) | payer MEDICARE ==
[2024-06-08] MEDS ORDERED: PROPOFOL 40 ML ONE (10:26)
[2024-06-08] MEDS ORDERED: Lidocaine 2% PF 5 ML VIAL ONE (10:26)
[2024-06-08] MEDS ORDERED: PROPOFOL 20 ML ONE (11:56)
== END 2024-06-08 13:45 | disposition home or self-care (01) ==
LOC: SDC 08:29
PROVIDERS: ATTEND Internal Medicine Gastroenterology
PROC: 0DB68ZX Excision of Stomach, Via Natural or Artificial Opening Endoscopic, Diagnostic (ICD-10-PCS; principal; 2024-06-08)
PROC: 0DJD8ZZ Inspection of Lower Intestinal Tract, Via Natural or Artificial Opening Endoscopic (ICD-10-PCS; 2024-06-08)
DX: K21.00 Gastro-esophageal reflux disease with esophagitis, without bleeding (principal); K29.50 Unspecified chronic gastritis without bleeding; K44.9 Diaphragmatic hernia without obstruction or gangrene; K64.8 Other hemorrhoids; Z86.0100 Personal history of colon polyps, unspecified; Z79.01 Long term (current) use of anticoagulants; Z79.82 Long term (current) use of aspirin; Z79.899 Other long term (current) drug therapy; I48.91 Unspecified atrial fibrillation; I25.10 Atherosclerotic heart disease of native coronary artery without angina pectoris; Z87.19 Personal history of other diseases of the digestive system; Z95.0 Presence of cardiac pacemaker; E78.00 Pure hypercholesterolemia, unspecified; Z98.890 Other specified postprocedural states; Z91.010 Allergy to peanuts; Z87.891 Personal history of nicotine dependence
CPT/HCPCS: 43239; 45378; 82962; J2704; 36416; 88305; 88342